=== PATIENT | male | born 1945 ===

== ENCOUNTER 2017-04-07 07:00 | Inpatient (IN) | payer OTHER ==
[~2017-04-07] VITALS: Ht 172.7 cm; Wt 106.6 kg
[~2017-04-07 07:00] MED LIST: Pantoprazole Inj IVP ONE; Vancomycin 1gm/D5W 275ml IVPB ONE
[2017-04-14] MEDS ORDERED: Vancomycin 1gm/D5W 275ml IVPB ONE ×2 (06:00)
[2017-04-14] MEDS ORDERED: Pantoprazole Inj IVP ONE (06:00)
[2017-04-21] VITALS (15 sets, daily range): BP systolic 124–179; BP diastolic 55–85
[2017-04-21] MEDS ORDERED: LORATADINE10 M2 PO (06:23)
[2017-04-21] MEDS ORDERED: ASPIRIN81 MG ORAL (06:23)
[2017-04-21] MEDS ORDERED: TRIAMTERENE-HC1 EAC7 ORAL (06:23)
[2017-04-21] MEDS ORDERED: HYDROXYZINE PA100 MG ORAL (06:23)
[2017-04-21] MEDS ORDERED: ATENOLOL25 MG ORAL (06:23)
[2017-04-21] MEDS ORDERED: AMLODIPINE BESYL5 MG ORAL (06:23)
[2017-04-21] MEDS ORDERED: FISH OIL CAP1000 MG ORAL (06:23)
[2017-04-21] MEDS ORDERED: ATORVASTATIN CA40 MG ORAL (06:23)
[2017-04-21] MEDS ORDERED: Pantoprazole Inj ONE (06:25)
[2017-04-21] MEDS ORDERED: Vancomycin 1gm inj IVPB ONE (06:25)
[2017-04-21] MEDS ORDERED: Thrombin 5000 units TOPIC ONE (06:26)
[2017-04-21] MEDS ORDERED: Heparin 5000 units/ml inj ONE (06:27)
[2017-04-21] MEDS ORDERED: Thrombin 5000 units spray kit TOPIC ONE (06:28)
[2017-04-21] MEDS ORDERED: Gelfoam Absorbable 1gm powder pkt TOPIC ONE (06:28)
[2017-04-21] MEDS ORDERED: Bacitracin 50000 Units Vial ONE (06:29)
[2017-04-21] MEDS ORDERED: Bupivacaine w/Epi 0.5% 30ml Vial INJ ONE (06:29)
[2017-04-21] MEDS ORDERED: Vancomycin 1 GM in D5W 275 ML IVPB ONE (06:30)
[2017-04-21] MEDS ORDERED: fentaNYL 100 mcg/2 mL IV ONE (07:30)
[2017-04-21] MEDS ORDERED: LR 1000ml ONE (07:30)
[2017-04-21] MEDS ORDERED: Labetalol 5mg/ml 20ml vial IV ONE (07:30)
[2017-04-21] MEDS ORDERED: Midazolam 2mg/2ml Inj ONE (07:30)
[2017-04-21] MEDS ORDERED: Dexamethasone 4mg/ml vial ONE (07:30)
[2017-04-21] MEDS ORDERED: Zemuron 50mg/5ml Inj IV ONE (07:30)
[2017-04-21] MEDS ORDERED: Lidocaine 1% MPF 10mg/ml 5ml ONE (07:30)
[2017-04-21] MEDS ORDERED: Sterile Water Irrig 1000ml IRRIG ONE (07:30)
[2017-04-21] MEDS ORDERED: NS Irrig 1000ml ONE (07:30)
[2017-04-21] MEDS ORDERED: Propofol 10mg/ml 100ml btl IV ONE (07:30)
[2017-04-21] MEDS ORDERED: Glycopyrrolate 0.2mg/ml 1ml Vial ONE (07:30)
[2017-04-21] MEDS ORDERED: Neostigmine 1mg/ml 10ml Inj ONE (07:30)
[2017-04-21] MEDS ORDERED: fentaNYL 250mcg/5ml ONE (07:30)
--- NOTE | 2017-04-21 07:37 | Pre-Procedure Note/Attestation ---
Pre-Procedure Note/Attestation Complete Prior to Procedure Planned Procedure: bilateral Procedure Narrative: Posterior lumbar decompression at L4-5 with interspinous fusion, use of autograft, allograft, and autograft and iliac crest bone marrow aspiration and posterolateral arthrodesis. Attestation I attest that I discussed the nature of the procedure; its benefits; risks and complications; and alternatives (and the risks and benefits of such alternatives ), prior to the procedure, with the patient (or the patient's legal advertising account representative). I attest that, if there was a reasonable possibility of needing a blood transfusion, the patient (or the patient's legal advertising account representative) was given the [place] Department of Health Services standardized written summary, pursuant to the Ramone Yeadon Blood Safety Act ([place] Health and Safety Code # 1645, as amended). I attest that I re-evaluated the patient just prior to the surgery and that there has been no change in the patient's H&P, except as documented below: JAYESH CONTE Apr 21, 2017 07:37
[2017-04-21] MEDS ORDERED: LR 1000ml 1,000 ML IVLG SCH (08:05)
[2017-04-21] MEDS ORDERED: Norco 7.5mg/325mg tab ORAL PRN ×2 (08:15→12:30)
[2017-04-21] MEDS ORDERED: Norco 5mg/325mg tab ORAL PRN ×2 (08:15→12:30)
[2017-04-21] MEDS ORDERED: LORazepam Inj 2mg/ml 1ml IV PRN (08:15)
[2017-04-21] MEDS ORDERED: Meperidine 25mg/0.5ml Inj (FOR RIGORS ONLY) IV PRN (08:15)
[2017-04-21] MEDS ORDERED: Midazolam 2mg/2ml Inj IVP PRN (08:15)
[2017-04-21] MEDS ORDERED: DiphenhydrAMINE 50mg/ml Inj IVP PRN (08:15)
[2017-04-21] MEDS ORDERED: fentaNYL 100 mcg/2 mL IV PRN (08:15)
[2017-04-21] MEDS ORDERED: Hydromorphone 0.5mg/0.5ml inj IVP PRN (08:15)
[2017-04-21] MEDS ORDERED: Atropine Inj 1mg/10ml Syr IV PRN (08:15)
[2017-04-21] MEDS ORDERED: Metoclopramide 10mg/2ml Inj IVP PRN (08:15)
[2017-04-21] MEDS ORDERED: Ketorolac 60mg Inj IV PRN (08:15)
[2017-04-21] MEDS ORDERED: Ketorolac 30mg Inj IV PRN (08:15)
[2017-04-21] MEDS ORDERED: oxyCODONE HCL/Acetaminophen 5/325mg ORAL PRN (08:15)
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
--- NOTE | 2017-04-21 08:22 | Immediate Post-Op Evaluation ---
Immediate Post-Op Evalulation Immediate Post-Op Evalulation Procedure: PLIF L4-5 Date of Evaluation: Apr 21, 2017 Time of Evaluation: 10:44 IV Fluids: 600 LR Blood Products: 0 Estimated Blood Loss: 50 Urinary Output: 200 Blood Pressure Systolic: 179 Blood Pressure Diastolic: 85 Pulse Rate: 74 Respiratory Rate: 16 O2 Sat by Pulse Oximetry: 100 Temperature (Fahrenheit): 97.7 Pain Score (1-10): 3 Nausea: No Vomiting: No Complications 0 Patient Status: awake, reacts, patent, extubated, none Hydration Status: adequate Dru mg Gentimicin, 1 Gram Vancomycin IV Given Within 1 Hr of Incision: Yes Time Given: 07:46 Anibal Valerio MD Apr 21, 2017 08:22
[2017-04-21] MEDS ORDERED: Acetaminophen (Non formulary) 1,000 MG/100 ML ML IV ONE (09:00)
--- NOTE | 2017-04-21 10:38 | Brief Operative Note ---
Immediate Post Operative Note Operative Note Chief Complaint: Intractable low back pain bilateal lower extremity radiculopathy and diffic Pre-op Diagnosis: Lumbar stenosis with grade anterolisthesis of L4 on L5 Intractable low back pain and bilateral lower extremity radiculopathy lack of improvement from conservative care and interventional pain injections Procedure: 1. Bilateral L4 hemilaminotomies, medial facetectomy and foraminotomy 2. Central and lateral recess decompression and ligamentectomy L4-5 3. Posterolateral arthrodesis L4-5 bilaterally 4. Interspinous fusion with 27mm x 12 mm Benefix system 5. [place] local bone from lamina for grafting. 6. Right iliac crest bone marrow aspiration and preparation with [place] system. 7. Application of epidural fat graft L4-5 level, bilaterally 8. Intra-operative supervision, use and interpretation of fluoroscopy for localization and placement of lumbar instrumentation. 9. Intra-operative neuromonitoring with SSEPs and Dermatomal evoked potentials. 10. Plastic surgical closure of a 8 cm lumbar wound. Post-op Diagnosis: same as pre-op Findings: consistent w/pre-op dx studies Surgeon: Rafi Guerrero MD Flexo Press Operator: Federico Valencia MD Anesthesiologist: Dr. Figueroa Anesthesia: general Specimen: none Complications: none Condition: stable Fluids: 600 Estimated Blood Loss: volume - 50 cc Drains: none Implant(s) used?: Yes - Benefix interspinous device, allograft RAFI GUERRERO Apr 21, 2017 10:37
[2017-04-21] MEDS ORDERED: traMADol 50mg tab ORAL PRN (10:45)
--- NOTE | 2017-04-21 11:02 | General Progress Note ---
Progress Note Progress Note Neurosurgery Postop check S/ Comfortable. No Leg pain. No shortness of breath or chest pain O/ Vs: Last 24 Hour Vital Signs Date Time Temp Pulse Resp B/P (MAP) Pulse Ox O2 Delivery O2 Flow Rate FiO2 04/21/17 10:55 68 19 162/75 100 Simple Mask 6.0 04/21/17 10:45 74 16 146/64 100 Simple Mask 6.0 04/21/17 10:40 67 15 146/64 99 Simple Mask 6.0 04/21/17 10:35 68 17 148/63 99 Simple Mask 6.0 04/21/17 10:34 74 16 100 04/21/17 10:33 97.7 78 14 179/85 100 Simple Mask 6.0 04/21/17 06:16 97.5 67 18 143/78 97 Room Air Alert and oriented Moves all extremities well sensory normal incision dry Doing well Admit Lumbar brace Family updated. JAYESH CONTE Apr 21, 2017 11:02
[2017-04-21] MEDS ORDERED: HYDROmorphone 1mg/ml Carpuject IVP PRN (12:30)
[2017-04-21] MEDS ORDERED: Milk of Magnesia 30ml Ud ORAL PRN (13:00)
--- NOTE | 2017-04-21 14:43 | Diagnostic Imaging Report ---
Indication: Back pain Comparison: None Findings: Fluoroscopic views of the lumbar spine were obtained. Intraoperative imaging with localization of L5 followed by placement of a interspinous processes is between L4 and L5. Impression: Intraoperative imaging
[2017-04-21] MEDS: D5 1/2NS w/KCl 20mEq 1,000 ML IV SCH ×2 (15:13→23:30)
[2017-04-21] MEDS: Pericolace tab ORAL SCH (18:10)
[2017-04-21] MEDS: Docusate 100mg cap ORAL SCH (18:10)
[2017-04-21] MEDS ORDERED: Terazosin 2mg cap ORAL SCH (21:00)
--- NOTE | 2017-04-21 21:13 | General Progress Note ---
Assessment/Plan Status Narrative s/p complwex spine surgery perioperative mnimal blood loss hypertenison Assessment/Plan pt ot dvt proophyalxis with SDCD adn shorty hose stocking paoin control resume antihypertensive. Subjective Date patient seen: Apr 21, 2017 Time patient seen: 21:12 Constitutional: Reports: no symptoms HEENT: Reports: no symptoms Cardiovascular: Reports: no symptoms Respiratory: Reports: no symptoms Allergies: Coded Allergies: No Known Allergies (Unverified , 04/06/17) Objective Last 24 Hour Vital Signs Date Time Temp Pulse Resp B/P (MAP) Pulse Ox O2 Delivery O2 Flow Rate FiO2 04/21/17 20:31 98.2 65 19 129/66 97 Nasal Cannula 2.0 04/21/17 16:26 98 Nasal Cannula 2.0 04/21/17 16:25 Nasal Cannula 2.0 04/21/17 16:19 98.3 80 20 127/55 99 Nasal Cannula 2.0 04/21/17 13:43 97.4 83 20 126/68 98 Nasal Cannula 2.0 04/21/17 12:48 98.1 82 20 128/72 99 Nasal Cannula 2.0 04/21/17 12:18 97.4 68 20 124/66 100 Nasal Cannula 2.0 04/21/17 11:30 97.6 62 16 166/77 100 Nasal Cannula 98.0 04/21/17 11:30 97.6 04/21/17 11:30 97.6 04/21/17 11:20 66 16 161/68 100 Simple Mask 6.0 04/21/17 11:10 65 13 166/63 100 Simple Mask 6.0 04/21/17 11:00 70 16 177/76 100 Simple Mask 6.0 04/21/17 10:55 68 19 162/75 100 Simple Mask 6.0 04/21/17 10:45 74 16 146/64 100 Simple Mask 6.0 04/21/17 10:40 67 15 146/64 99 Simple Mask 6.0 04/21/17 10:35 68 17 148/63 99 Simple Mask 6.0 04/21/17 10:34 74 16 100 04/21/17 10:33 97.7 78 14 179/85 100 Simple Mask 6.0 04/21/17 06:16 97.5 67 18 143/78 97 Room Air Intake and Output 04/21/17 04/22/17 19:00 07:00 Intake Total 1740 ml Output Total 700 ml Balance 1040 ml Intake Oral 340 ml IV Total 1400 ml Output Urine Total 650 ml Estimated Blood Loss 50 ml # Voids 1 Height (Feet): 5 Height (Inches): 8.00 Weight (Pounds): 235 General Appearance: WD/WN Neck: non-tender Cardiovascular: normal rate, regular rhythm, no JVD Respiratory/Chest: lungs clear Abdomen: soft MINI ADAMSON Apr 21, 2017 21:13
[2017-04-21] MEDS: Vancomycin 1 GM in D5W 275 ML IVPB SCH (21:21)
[2017-04-22] VITALS: BP 148/68
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
[2017-04-22 04:00] VITALS: BP 139/68
[2017-04-22 06:09] LABS: MEAN CORPUSCULAR HEMOGLOBIN 32.9 PG (27.0-31.0); MEAN CORPUSCULAR HGB CONC 33.3 G/DL (32.0-36.0); MEAN CORPUSCULAR VOLUME 99 FL (80-99); MEAN PLATELET VOLUME 15.2 FL (6.5-10.1); PLATELET COUNT 132 K/UL (150-450); RED BLOOD COUNT 3.84 M/UL (4.70-6.10); RED CELL DISTRIBUTION WIDTH 10.8 % (11.6-14.8); WHITE BLOOD COUNT 15.9 K/UL (4.8-10.8)
[2017-04-22 06:36] LABS: CREATININE 1.4 mg/dL (0.7-1.2); GLOMERULAR FILTRATION RATE 50.1 mL/min (>60); MAGNESIUM 2.1 mg/dL (1.7-2.5); POTASSIUM 4.6 mEQ/L (3.4-4.9)
[2017-04-22 08:00] VITALS: BP 137/62
--- NOTE | 2017-04-22 08:22 | General Progress Note ---
Assessment/Plan Assessment/Plan s/p spin e surg nitin hypertension dopin vg well pt ot dvt prophyalxis paincontrol iif does well may be able to go home. Subjective Date patient seen: Apr 22, 2017 Time patient seen: 08:21 Constitutional: Reports: no symptoms Cardiovascular: Reports: no symptoms Respiratory: Reports: no symptoms Allergies: Coded Allergies: No Known Allergies (Unverified , 04/06/17) Objective Last 24 Hour Vital Signs Date Time Temp Pulse Resp B/P (MAP) Pulse Ox O2 Delivery O2 Flow Rate FiO2 04/22/17 04:00 97.4 75 19 139/68 96 Nasal Cannula 2.0 04/22/17 00:00 98.2 72 18 148/68 97 Nasal Cannula 2.0 04/21/17 20:31 98.2 65 19 129/66 97 Nasal Cannula 2.0 04/21/17 16:26 98 Nasal Cannula 2.0 04/21/17 16:25 Nasal Cannula 2.0 04/21/17 16:19 98.3 80 20 127/55 99 Nasal Cannula 2.0 04/21/17 13:43 97.4 83 20 126/68 98 Nasal Cannula 2.0 04/21/17 12:48 98.1 82 20 128/72 99 Nasal Cannula 2.0 04/21/17 12:18 97.4 68 20 124/66 100 Nasal Cannula 2.0 04/21/17 11:30 97.6 62 16 166/77 100 Nasal Cannula 98.0 04/21/17 11:30 97.6 04/21/17 11:30 97.6 04/21/17 11:20 66 16 161/68 100 Simple Mask 6.0 04/21/17 11:10 65 13 166/63 100 Simple Mask 6.0 04/21/17 11:00 70 16 177/76 100 Simple Mask 6.0 04/21/17 10:55 68 19 162/75 100 Simple Mask 6.0 04/21/17 10:45 74 16 146/64 100 Simple Mask 6.0 04/21/17 10:40 67 15 146/64 99 Simple Mask 6.0 04/21/17 10:35 68 17 148/63 99 Simple Mask 6.0 04/21/17 10:34 74 16 100 04/21/17 10:33 97.7 78 14 179/85 100 Simple Mask 6.0 Laboratory Tests 04/22/17 05:15: White Blood Count 15.9H, Red Blood Count 3.84L, Hemoglobin 12.6L, Hematocrit 37.9L, Mean Corpuscular Volume 99, Mean Corpuscular Hemoglobin 32.9H, Mean Corpuscular Hemoglobin Concent 33.3, Red Cell Distribution Width 10.8L, Platelet Count 132L, Mean Platelet Volume 15.2H, Neutrophils (%) (Auto) , Lymphocytes (%) (Auto) , Monocytes (%) (Auto) , Eosinophils (%) (Auto) , Basophils (%) (Auto) , Neutrophils % (Manual) [Pending], Lymphocytes % (Manual) [Pending], Platelet Estimate [Pending], Platelet Morphology [Pending], Sodium Level 137, Potassium Level 4.6, Chloride Level 99, Carbon Dioxide Level 26, Anion Gap 12, Blood Urea Nitrogen 21, Creatinine 1.4H, Estimat Glomerular Filtration Rate 50.1, Glucose Level 159H, Calcium Level 9.0, Magnesium Level 2.1 Height (Feet): 5 Height (Inches): 8.00 Weight (Pounds): 235 General Appearance: WD/WN Cardiovascular: normal rate, regular rhythm, no JVD Respiratory/Chest: lungs clear Abdomen: soft MINI ADAMSON Apr 22, 2017 08:22
[2017-04-22] MEDS ORDERED: Triamterene/Hctz 37.5/25 cap ORAL SCH (09:00)
[2017-04-22] MEDS ORDERED: Atenolol 25mg tab ORAL SCH (09:00)
[2017-04-22] MEDS: Docusate 100mg cap ORAL SCH (09:19)
[2017-04-22] MEDS: Pericolace tab ORAL SCH (09:19)
[2017-04-22] MEDS: Vancomycin 1 GM in D5W 275 ML IVPB SCH (09:19)
[2017-04-22 09:34] LABS: BAND NEUTROPHILS % (MANUAL) 0 % (0-8); BASOPHILS % (MANUAL) 0 % (0-2); EOSINOPHILS % (MANUAL) 0 % (0-3); LYMPHOCYTES % (MANUAL) 6 % (20-45); NEUTROPHILS % (MANUAL) 88 % (45-75); PLATELET ESTIMATE DECREASED; PLATELET MORPHOLOGY NORMAL; TOTAL CELLS COUNTED 100
[2017-04-22 09:35] LABS: MACROCYTES 1+
--- NOTE | 2017-04-22 09:59 | 48 Hour Post Anesthesia Eval ---
Post Anesthesia Evaluation Procedure: PLIF L4-5 Date of Evaluation: Apr 22, 2017 Time of Evaluation: 09:58 Blood Pressure Systolic: 124 0: 58 Pulse Rate: 72 Respiratory Rate: 20 Temperature (Fahrenheit): 97.4 O2 Sat by Pulse Oximetry: 98 Airway: patent Nausea: No Vomiting: No Pain Intensity: 3 Hydration Status: adequate Cardiopulmonary Status: stable Mental Status/LOC: patient returned to baseline Follow-up Care/Observations: n/a Post-Anesthesia Complications: none Follow-up care needed: N/A MARITZA CARTY M.D. Apr 22, 2017 09:59
--- NOTE | 2017-04-22 12:21 | General Progress Note ---
Progress Note Progress Note Neurosurgery POD#1 s/ ambulated, voided, zero BM. Walking better. No leg pain. o/ AF VS nl Alert and oriented x 4 Moves all extremities well Incision clean, dry and intact normal sensation brace at bedside Labs Laboratory Tests Test 04/22/17 05:15 White Blood Count 15.9 K/UL (4.8-10.8) H Red Blood Count 3.84 M/UL (4.70-6.10) L Hemoglobin 12.6 G/DL (14.2-18.0) L Hematocrit 37.9 % (42.0-52.0) L Mean Corpuscular Volume 99 FL (80-99) Mean Corpuscular Hemoglobin 32.9 PG (27.0-31.0) H Mean Corpuscular Hemoglobin Concent 33.3 G/DL (32.0-36.0) Red Cell Distribution Width 10.8 % (11.6-14.8) L Platelet Count 132 K/UL (150-450) L Mean Platelet Volume 15.2 FL (6.5-10.1) H Neutrophils (%) (Auto) % (45.0-75.0) Lymphocytes (%) (Auto) % (20.0-45.0) Monocytes (%) (Auto) % (1.0-10.0) Eosinophils (%) (Auto) % (0.0-3.0) Basophils (%) (Auto) % (0.0-2.0) Differential Total Cells Counted 100 Neutrophils % (Manual) 88 % (45-75) H Lymphocytes % (Manual) 6 % (20-45) L Monocytes % (Manual) 6 % (1-10) Eosinophils % (Manual) 0 % (0-3) Basophils % (Manual) 0 % (0-2) Band Neutrophils 0 % (0-8) Platelet Estimate Decreased L Platelet Morphology Normal Red Blood Cell Morphology Macrocytosis 1+ Sodium Level 137 mEQ/L (135-145) Potassium Level 4.6 mEQ/L (3.4-4.9) Chloride Level 99 mEQ/L (98-107) Carbon Dioxide Level 26 mEQ/L (20-30) Anion Gap 12 (5-15) Blood Urea Nitrogen 21 mg/dL (7-23) Creatinine 1.4 mg/dL (0.7-1.2) H Estimat Glomerular Filtration Rate 50.1 mL/min (>60) Glucose Level 159 mg/dL (74-106) H Calcium Level 9.0 mg/dL (8.6-10.2) Magnesium Level 2.1 mg/dL (1.7-2.5) doing well d/c planning d/w pt and nursing internal med follow-up appreciated. JAYESH CONTE Apr 22, 2017 12:21
[2017-04-22] MEDS ORDERED: Lactulose 20gm/30ml UDC ORAL ONE (12:30)
[2017-04-22 12:49] VITALS: BP 128/66
[2017-04-22] MEDS ORDERED: HYDROCODON-ACE1 EA15 ORAL (13:02)
[2017-04-22] MEDS ORDERED: COLACE100 MG ORAL (13:04)
[2017-04-22] MEDS ORDERED: Tubing IV Secondary IV ONE (14:24)
--- NOTE | 2017-04-23 06:15 | Discharge Summary ---
DATE OF ADMISSION: 04/21/2017 DATE OF DISCHARGE: 04/22/2017 DISCHARGE DIAGNOSES: Status post posterior lumbar decompressive surgery L4-5 level with posterolateral arthrodesis, interspinous fusion, and iliac crest bone marrow aspiration. HISTORY OF PRESENT ILLNESS: Refer to the chart for detailed History and Physical. HOSPITAL COURSE: The patient was admitted on 04/21/2017 and underwent an uneventful posterior lumbar decompressive surgery, bilateral L4 hemilaminotomy, decompression centrally and laterally, posterolateral arthrodesis, iliac crest bone marrow aspiration, and interspinous fusion. He has done very well postoperatively. His pain is under control. He is ambulating. He is voiding and he has better posture already. He is being discharged home with appropriate discharge instructions. DISPOSITION: Home. DISCHARGE INSTRUCTIONS: The patient is asked to keep the wound dry for four days. The patient can remove dressing in four days. In case of fever more than 101 degrees, chills, or drainage from the incision, the patient is to contact Dr. Guerrero or go to the nearest ER. DIET: Regular. ACTIVITIES: The patient is asked not to do any bending, lifting, or twisting until cleared. He is asked to wear lumbar brace when out of bed, sitting, or ambulating. MEDICATIONS: Include Mccoy and Colace. The patient is asked to continue with home medications except for aspirin, which he should delay for about five days prior to restarting it. COMPLICATIONS: None. CONSULTS: Ben Bishop M.D. Internal Medicine. Rafi Guerrero M.D. DR: FLOR JOB#: [id number] CC:
== END 2017-04-22 14:25 | disposition home or self-care (01) | DRG 460 ==
LOC: SDSOVERFLO 04-21 05:09 → 3E 04-21 11:56
PROC: 07DR3ZZ Extraction of Iliac Bone Marrow, Percutaneous Approach (ICD-10-PCS; principal; 2017-04-21 07:00)
PROC: 01NB0ZZ Release Lumbar Nerve, Open Approach (ICD-10-PCS; principal; 2017-04-21 07:00)
PROC: 0SG00AJ Fusion of Lumbar Vertebral Joint with Interbody Fusion Device, Posterior Approach, Anterior Column, Open Approach (ICD-10-PCS; principal; 2017-04-21 07:00)
DX: M51.16 Intervertebral disc disorders with radiculopathy, lumbar region (principal); I10 Essential (primary) hypertension; M48.06 Spinal stenosis, lumbar region; V89.2XXS Person injured in unspecified motor-vehicle accident, traffic, sequela; I25.10 Atherosclerotic heart disease of native coronary artery without angina pectoris; Z95.1 Presence of aortocoronary bypass graft; E78.5 Hyperlipidemia, unspecified; G47.00 Insomnia, unspecified; G47.30 Sleep apnea, unspecified
CPT/HCPCS: 36415; 72020; 76001; 80048; 83735; 85007; 85025; 86850; 86900; 86901; 87081; 94760; C9399; J2180; J2250; J2405; J2710